=== PATIENT | male | born 1960 | race Caucasian/White ===

== ENCOUNTER 2020-03-17 09:30 | Emergency (ER) | payer OTHER ==
[~2020-03-17] VITALS: Ht 175.3 cm; Wt 90.9 kg
[2020-03-17] MEDS ORDERED: ONDANSETRON PF 4 MG/2 ML VIAL. IVP ONE (10:00)
[2020-03-17] MEDS ORDERED: IV NORMAL SALINE 1,000ML 1,000 ML IV ONE (10:00)
--- NOTE | 2020-03-17 10:04 | PHYS DOC ---
Past History Past Medical History: GERD Past Surgical History: No Surgical History Alcohol Use: Occasionally General Adult EDM: Chief Complaint: BACK PAIN OR INJURY HPI: HPI: Patient is a 60-year-old male who presented to ER today for evaluation of bilateral flank pain, lower back pain started suddenly about 1 hour ago while he was standing. Patient said he was bending over to work and then when he stood up, he suddenly started having pain. Patient denies any nausea vomiting, no urinary frequency, no hematuria. Patient denies any chest pain, no abdominal pain. Patient denies any numbness or weakness in his lower extremity. Patient denies any injury to his back. Patient denies any previous history of back problem. Patient said the pain is not from the outside, touching his back did not cause any pain. Patient said the pain is like squeezing sensation, hurt worse when he straight his back up. Patient denies any chest pain, no trouble breathing. No fever, no cough. He has history of neck problem in the past but not back problem. Patient denied any bowel or bladder incontinence. Review of Systems: Review of Systems: Constitutional: Denies fever or chills Eyes: Denies change in visual acuity HENT: Denies nasal congestion or sore throat Respiratory: Denies cough or shortness of breath Cardiovascular: Denies chest pain or edema GI: Denies abdominal pain, nausea, vomiting, bloody stools or diarrhea : Denies dysuria Musculoskeletal: Positive for bilateral flank pain, no joint pain. Integument: Denies rash Neurologic: Denies headache, focal weakness or sensory changes Endocrine: Denies polyuria or polydipsia Lymphatic: Denies swollen glands Psychiatric: Denies depression or anxiety Heart Score: Risk Factors: Risk Factors: DM, Current or recent (<one month) smoker, HTN, HLP, family history of CAD, obesity. Risk Scores: Score 0 - 3: 2.5% MACE over next 6 weeks - Discharge Home Score 4 - 6: 20.3% MACE over next 6 weeks - Admit for Clinical Observation Score 7 - 10: 72.7% MACE over next 6 weeks - Early Invasive Strategies Current Medications: Current Meds: Current Medications Medications (Trade) Dose Ordered Sig/Marcela Start Time Stop Time Status Last Admin Dose Admin Fentanyl Citrate (Fentanyl 2ml Vial) 50 mcg 1X ONCE 03/17/20 10:00 03/17/20 10:02 DC Ondansetron HCl (Zofran) 4 mg 1X ONCE 03/17/20 10:00 03/17/20 10:02 DC Sodium Chloride 1,000 ml @ 1,000 mls/hr 1X ONCE 03/17/20 10:00 03/17/20 10:59 Allergies: Allergies: Allergies Coded Allergies Type Severity Reaction Last Updated Verified No Known Drug Allergies 03/17/20 No Physical Exam: PE: Constitutional: Well developed, well nourished, no acute distress, non-toxic appearance. [] HENT: Normocephalic, atraumatic, bilateral external ears normal, oropharynx moist, no oral exudates, nose normal. [] Eyes: PERRLA, EOMI, conjunctiva normal, no discharge. [] Neck: Normal range of motion, no tenderness, supple, no stridor. [] Cardiovascular:Heart rate regular rhythm, no murmur [] Lungs & Thorax: Bilateral breath sounds clear to auscultation [] Abdomen: Bowel sounds normal, soft, no tenderness, no masses, no pulsatile masses. [] Skin: Warm, dry, no erythema, no rash. [] Back: No tenderness, no CVA tenderness. No midline vertebral tenderness to palpation. There is bilateral spinal muscle tenderness to palpation around L1/L2 AREA. NO BONY STEP OFF. Extremities: No tenderness, no cyanosis, no clubbing, ROM intact, no edema. [] Neurologic: Alert and oriented X 3, normal motor function, normal sensory function, no focal deficits noted. [] Psychologic: Affect normal, judgement normal, mood normal. [] Current Patient Data: Vital Signs: Vital Signs Date Time Temp Pulse Resp B/P (MAP) Pulse Ox O2 Delivery O2 Flow Rate FiO2 03/17/20 09:40 98.5 24 153/76 (101 97 Room Air EKG: EKG: [] Radiology/Procedures: Radiology/Procedures: [][address] [address] IMAGING REPORT Signed PATIENT: DANIELLE DEMARCO ACCOUNT: [id number] : 1960 LOCATION: ER AGE: 60 SEX: M EXAM STATUS: REG ER ORD. PHYSICIAN: PATRICIA TINAJERO DO REASON: bilateral flank pain, abdomen pain PROCEDURE: CT ABD PELV W/ IV CONTRST ONLY Exam: CT abdomen/pelvis with intravenous contrast Indication: Bilateral flank pain, abdominal pain Comparison: None Technique: Helical CT imaging performed of the abdomen and pelvis after the intravenous administration of 75 mL intravenous contrast. Sagittal and coronal reformats were obtained. One or more of the following individualized dose reduction techniques were utilized for this examination: 1. Automated exposure control 2. Adjustment of the mA and/or kV according to patient size 3. Use of iterative reconstruction technique. Findings: Lower chest: Lung bases are clear. Heart is normal in size. There is calcified coronary artery atherosclerosis. Liver: The liver is normal in size. No focal liver lesion. Gallbladder/Biliary Tree: Normal. Pancreas: Normal. Spleen: Normal. Adrenal Glands: Normal. Kidneys/Ureters/Bladder: Kidneys are normal in size and enhance symmetrically. No hydronephrosis. A few subcentimeter hypodensities bilaterally measuring up to 5 mm are too small to characterize. Ureters and bladder are normal. Reproductive Organs: There are coarse calcifications the prostate gland. Stomach, small bowel, and colon: Stomach, small bowel, and colon are normal. The appendix is normal. Vasculature: Abdominal aorta is normal in caliber. There is mild calcified aortic atherosclerosis. Lymph Nodes: No lymphadenopathy. Peritoneum and retroperitoneum: No free fluid or free air. Bones: No acute osseous abnormality. Impression: No acute intra-abdominal/pelvic abnormality. Electronically signed by: Karen Roberson MD (03/17/2020 12:06 PM) [id number] DICTATED AND SIGNED BY: KAREN ROBERSON MD DATE: 03/17/20 1206 CC: PATRICIA TINAJERO DO; MARIO VALDES MD ~ Course & Med Decision Making: Course & Med Decision Making Pertinent Labs and Imaging studies reviewed. (See chart for details) Patient is a 60-year-old male who was evaluated in the ED for evaluation of bilateral flank pain, back pain, starts only while he was at work today. Patient said the pain got worse whenever he strained his back around, denies any chest pain, denies any trouble breathing. Patient denies any injury, denies any history of kidney stone. Work-up in the ER included lab work and CT scan of his abdomen pelvic did not show any acute problem. Patient was given pain medication in the ED and he felt much better. This physician asked him multiple times again if he has any chest pain or any trouble breathing patient clearly denies any chest pain or any trouble breathing. Patient has no previous history of coronary disease. Patient will be discharged home, was advised to follow-up with her family doctor for outpatient evaluation with MRI his back. Patient is amenable with the plan of care. Dragon Disclaimer: Dragon Disclaimer: This electronic medical record was generated, in whole or in part, using a voice recognition dictation system. Departure Departure: Impression: Primary Impression: Back pain Disposition: HOME/RESIDENCE PRIOR TO ADM Condition: STABLE Referrals: MARIO VALDES MD (PCP) please follow up with your family doctor for further evaluation with MRI of your back. Patient Instructions: Back Pain, Adult Additional Instructions: Thank you for visiting our Emergency Department. We appreciate you trusting us with your care. If any additional problems come up don't hesitate to return to visit us. Please follow up with your primary care provider so they can plan additional care if needed and know about the problem that you had. If symptoms worsen come back to the Emergency Department. Any concerning symptoms that start such as chest pain, shortness of air, weakness or numbness on one side of the body, running high fevers or any other concerning symptoms return to the ER. Scripts Hydrocodone Bit/Acetaminophen (NORCO 5-325 TABLET) 1 Each Tablet 1 TAB PO PRN Q6HRS PRN for PAIN, #12 TAB 0 Refills Prov: PATRICIA TINAJERO DO 03/17/20 Naproxen Sodium (ANAPROX DS) 550 Mg Tablet 1 TAB PO BID for back pain for 15 Days, #30 TAB 0 Refills Prov: PATRICIA TINAJERO DO 03/17/20 PATRICIA TINAJERO DO March 17, 2020 10:04
[2020-03-17 10:40] LABS: BACTERIA,URINE FEW /HPF (0-FEW); BILIRUBIN,URINE NEG (NEG); CLARITY,URINE CLEAR; COLOR,URINE YELLOW; GLUCOSE,URINE NEG (NEG); NITRITE,URINE NEG (NEG); SQUAMOUS EPITHELIAL CELL,UR OCC /LPF; WBC,URINE OCC /HPF (0-4)
[2020-03-17 10:54] LABS: HEMATOCRIT 47.5 % (39.0-53.0); HEMOGLOBIN 15.8 g/dL (13.0-17.5); MEAN CORPUSCULAR HEMOGLOBIN 30 pg (25-35); MEAN CORPUSCULAR HGB CONC 33 g/dL (31-37); MEAN CORPUSCULAR VOLUME 91 fL (79-100); RED BLOOD COUNT 5.23 x10^6/uL (4.30-5.70); RED CELL DISTRIBUTION WIDTH 13.5 % (11.5-14.5); WHITE BLOOD COUNT 3.9 x10^3/uL (4.0-11.0)
[2020-03-17 10:55] LABS: PLATELET COUNT 213 x10^3/uL (140-400)
[2020-03-17 11:03] LABS: % EOS 3 % (0-5); % LYMPHS 46 % (24-48); % MONOS 13 % (0-10); % SEGS 38 % (35-66)
[2020-03-17 11:04] LABS: PLT ESTIMATE ADEQUATE (ADEQUATE)
[2020-03-17 11:09] LABS: CALCIUM 8.5 mg/dL (8.5-10.1); CREATININE 0.8 mg/dL (0.7-1.3); GFR 99.3; POTASSIUM 4.2 mmol/L (3.5-5.1)
[2020-03-17 11:15] LABS: ALBUMIN 4.2 g/dL (3.4-5.0); ALBUMIN/GLOBULIN RATIO 1.3 (1.0-1.7); TOTAL BILIRUBIN 0.7 mg/dL (0.2-1.0); TOTAL PROTEIN 7.4 g/dL (6.4-8.2)
[2020-03-17] MEDS ORDERED: IOHEXOL 300 MG/ML 75 ML VIAL. IV ONE (11:30)
--- NOTE | 2020-03-17 12:09 | RAD ---
Exam: CT abdomen/pelvis with intravenous contrast Indication: Bilateral flank pain, abdominal pain Comparison: None Technique: Helical CT imaging performed of the abdomen and pelvis after the intravenous administration of 75 mL intravenous contrast. Sagittal and coronal reformats were obtained. One or more of the following individualized dose reduction techniques were utilized for this examination: 1. Automated exposure control 2. Adjustment of the mA and/or kV according to patient size 3. Use of iterative reconstruction technique. Findings: Lower chest: Lung bases are clear. Heart is normal in size. There is calcified coronary artery atherosclerosis. Liver: The liver is normal in size. No focal liver lesion. Gallbladder/Biliary Tree: Normal. Pancreas: Normal. Spleen: Normal. Adrenal Glands: Normal. Kidneys/Ureters/Bladder: Kidneys are normal in size and enhance symmetrically. No hydronephrosis. A few subcentimeter hypodensities bilaterally measuring up to 5 mm are too small to characterize. Ureters and bladder are normal. Reproductive Organs: There are coarse calcifications the prostate gland. Stomach, small bowel, and colon: Stomach, small bowel, and colon are normal. The appendix is normal. Vasculature: Abdominal aorta is normal in caliber. There is mild calcified aortic atherosclerosis. Lymph Nodes: No lymphadenopathy. Peritoneum and retroperitoneum: No free fluid or free air. Bones: No acute osseous abnormality. Impression: No acute intra-abdominal/pelvic abnormality. Electronically signed by: Karen Roberson MD (03/17/2020 12:06 PM) [id number]
[2020-03-17 12:26] VITALS: BP 185/102
[2020-03-17] MEDS ORDERED: KETOROLAC 30 MG/ML VIAL. IVP ONE (12:30)
[2020-03-17] MEDS ORDERED: HYDR-3165 PO ×2 (12:43→12:45)
[2020-03-17] MEDS ORDERED: NAPR-682 PO (12:43)
== END 2020-03-17 13:03 | disposition home or self-care (01) ==
LOC: ER 09:30
DX: M54.5 Low back pain (principal); R10.9 Unspecified abdominal pain; K21.9 Gastro-esophageal reflux disease without esophagitis
CPT/HCPCS: 36415; 74177; 80053; 81001; 83690; 85007; 85025; 96374; 96375; 99285; J1885; J2405; J3010; Q9967; J7030

== ENCOUNTER → 2020-07-11 | Outpatient (CLI) | payer OTHER ==
[~2020-07-11] MED LIST: HYDR-3165 PO; IOHEXOL 300 MG/ML 75 ML VIAL. IV ONE; NAPR-682 PO
--- NOTE | 2020-07-11 17:17 | RAD ---
EXAM: CT NECK SOFT TISSUES WITH CONTRAST. HISTORY: Sore throat. TECHNIQUE: Computed tomography of the neck soft tissues was performed after the intravenous administration of iodinated contrast. One or more of the following individualized dose reduction techniques were utilized for this examination: 1. Automated exposure control. 2. Adjustment of the mA and/or kV according to patient size. 3. Use of iterative reconstruction technique. COMPARISON: None. FINDINGS: Images of the lung apices reveal no acute abnormality. Bone windows reveal no suspicious lesions. There are anterior cervical discectomy and fusion changes from C5 through C7. The parotid glands and submandibular glands are unremarkable. The thyroid gland reveals no focal lesions. There are no clear laryngeal or pharyngeal masses. There are no pathologically enlarged lymph nodes. IMPRESSION: 1. No retropharyngeal or parapharyngeal collection. No acute process is identified. Direct visualization is more sensitive for mucosal lesions if there is persistent concern. Electronically signed by: Nate Castellon MD (07/11/2020 5:14 PM) [id number]
== END | disposition home or self-care (01) ==
LOC: CT 11:28
PROVIDERS: ATTEND Otolaryngology
DX: J02.9 Acute pharyngitis, unspecified (principal)
CPT/HCPCS: 70491; Q9967

== ENCOUNTER → 2020-12-15 | Outpatient (CLI) | payer OTHER ==
[~2020-12-15] MED LIST changes: -IOHEXOL 300 MG/ML 75 ML VIAL. IV ONE
--- NOTE | 2020-12-15 15:30 | RAD ---
EXAM: PA, oblique and lateral views left hand DATE: 12/15/2020 9:32 AM INDICATION: Reason: LEFT HAND PAIN AND SWELLING, WORSE IN 2-4 DIGITS / Spl. Instructions: UNABLE TO R EMOVE RING / History: COMPARISON: No Prior FINDINGS: Metallic densities project over the palmar aspect of the left thumb as well as the ulnar aspect of th e proximal carpal row and middle phalanx ring finger likely retained foreign bodies. No acute fractur e or dislocation. Small osteophytes are seen at multiple levels. Soft tissue swelling about the left wrist. IMPRESSION: 1. Multiple radiopaque densities likely joint bodies. 2. Multifocal degenerative change. 3. No evidence of acute fracture or dislocation. Electronically signed by: Ignacio Paz MD (12/15/2020 3:28 PM) [id number]
== END ==
LOC: RAD 09:18
PROVIDERS: ATTEND Physician Assistant
DX: M19.042 Primary osteoarthritis, left hand (principal); M25.742 Osteophyte, left hand; M85.842 Other specified disorders of bone density and structure, left hand; M79.89 Other specified soft tissue disorders
CPT/HCPCS: 73130